=== PATIENT | female | born 1965 ===

== ENCOUNTER 2021-02-06 13:36 | Outpatient (CLI) | payer MEDICARE | END 2021-02-06 13:37 | disposition home or self-care (01) | LOC: LABHHL 13:36 | PROVIDERS: ATTEND Otolaryngology Sleep Medicine | DX: J32.0 Chronic maxillary sinusitis (principal); J32.3 Chronic sphenoidal sinusitis; J34.2 Deviated nasal septum | CPT/HCPCS: 88305; 88311 ==